=== PATIENT | male | born 1930 | race Caucasian/White ===

== ENCOUNTER → 2016-07-25 | Outpatient (CLI) | payer MEDICARE | LOC: GMAJ 10:19 | PROVIDERS: ATTEND Family Medicine | DX: Z12.5 Encounter for screening for malignant neoplasm of prostate (principal) ==

== ENCOUNTER 2017-06-20 02:34 | Inpatient (IN) | payer MEDICARE ==
--- NOTE | 2017-06-20 03:07 | ED.PDOC ---
History of Present Illness - General Chief Complaint: Lower Extremity Injury Stated Complaint: Fell--Lt ankle injury Time Seen by Provider: 06/20/17 02:51 Source: patient, family - History of Present Illness Initial Comments: Tyler Dunaway 86 y/o male fell backwards while on his walker tonight at home on his way to the bathroom and twisted his left ankle. Occurred: just prior to arrival Pain - Lower Extremity: severe: Left Ankle Method of Injury: fell, twisted Improving Factors: rest Worsening Factors: movement Allergies/Adverse Reactions: Allergies Azithromycin [From Zithromax] Allergy (Verified 06/20/17 02:57) Penicillin G Allergy (Verified 06/20/17 02:57) Home Medications: Ambulatory Orders Citalopram Hydrobromide [Celexa] 20 mg PO DAILY 12/20/12 Gabapentin 250 mg/5 ml [Neurontin] 60 ml PO BID 12/20/12 Metoprolol Succinate [Toprol Xl] 25 mg PO DAILY 12/20/12 Omeprazole Magnesium [Prilosec Otc] 20 mg PO DAILY 12/20/12 Review of Systems - Review of Systems Constitutional: States: no symptoms reported EENTM: States: no symptoms reported Respiratory: States: no symptoms reported Cardiology: States: no symptoms reported Gastrointestinal/Abdominal: States: no symptoms reported Genitourinary: States: no symptoms reported Musculoskeletal: States: see HPI, other - leg swelling left -doppler sono left leg 06/19/17-no blood clots Skin: States: no symptoms reported Neurological: States: other - neuropathy Past Medical History (General) - Patient Medical History Hx Seizures: No Hx Stroke: No Hx Dementia: No Hx Asthma: No Hx of COPD: No Hx Cardiac Disorders: No Hx Congestive Heart Failure: No Hx Pacemaker: No Hx Hypertension: No Hx Thyroid Disease: No Hx Diabetes: No Hx Gastroesophageal Reflux: No Hx Renal Disease: No Hx Cancer: Yes - Colon CA Hx of HIV: No Hx Hepatitis C: No Hx MRSA: No Surgical History: cholecystectomy, other - colon - Vaccination History Hx Tetanus, Diphtheria Vaccination: No Hx Influenza Vaccination: Yes Hx Pneumococcal Vaccination: Yes - Social History Hx Tobacco Use: No Hx Alcohol Use: No Hx Substance Use: No Hx Substance Use Treatment: No Hx Depression: No Hx Physical Abuse: No Hx Emotional Abuse: No Hx Suspected Abuse: No - Activities of Daily Living Patient Lives Alone: No - son Grooming Ability: Independent Eating (Feeding) Ability: Independent Toileting Ability: Independent - Triage Comment ED Triage Comment: Presents to ED per [facility] from pt's home---pt fell getting up to BR---Lt ankle injury--comes with pillow splint to lt ankle plcaed per EMS. 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 Family Medical History - Family History Son Family History: Unknown Living Status: Still Living Physical Exam - Physical Exam General Appearance: Alert, Comfortable, No apparent distress Eyes, Ears, Nose, Throat: normal ENT inspection, other - hearing adequate Neck: non-tender, supple Cardiovascular/Respiratory: regular rate, rhythm, no M/R/G, normal peripheral pulses, no respiratory distress Gastrointestinal/Abdominal: non-tender, no organomegaly Back: no CVA tenderness, no vertebral tenderness Thigh/Hip: non-tender, no evidence of injury Leg: non-tender, no evidence of injury, other - leg edema Knee: non-tender, no evidence of injury Ankle: deformity - left ankle, ecchymosis - medial malleolus, limited ROM - painful, pain - left ankle joint, swelling - left ankle Foot: non-tender, no evidence of injury Neuro/Tendon: normal sensation, normal motor functions, responds to pain Skin: rash - anterior aspect left leg Progress - Progress Progress: 06/20/17 04:19 Vital Signs 06/20/17 02:47 Temperature 95.5 F L Pulse Rate [ 98 H monitor] Respiratory 20 Rate Blood Pressure 163/79 [monitor] O2 Sat by Pulse 98 Oximetry 06/20/17 06:[address] Morgan orthopedist [facility] recommend admission here at [facility] after reducing dislocation and placement of splint.HE WILL SEE PATIENT AT HIS OFFICE 10 AM 06/22/2017 - Results/Orders Results/Orders: Vital Signs - 8 hr 06/20/17 06/20/17 06/20/17 02:47 03:34 04:00 Temperature 95.5 F L 95.8 F L Pulse Rate [ 98 H 67 monitor] Respiratory 20 16 28 H Rate Blood Pressure 163/79 122/68 [monitor] O2 Sat by Pulse 98 94 L 98 Oximetry 06/20/17 06/20/17 06/20/17 04:34 05:30 05:42 Temperature 96.2 F L 96.8 F L Pulse Rate [ 65 69 66 monitor] Respiratory 18 16 18 Rate Blood Pressure 127/79 158/56 132/75 [monitor] O2 Sat by Pulse 94 L 94 L 97 Oximetry 06/20/17 06:24 Temperature 97.2 F L Pulse Rate [ 58 L monitor] Respiratory 18 Rate Blood Pressure 109/62 [monitor] O2 Sat by Pulse 91 L Oximetry - EKG/XRAY/CT XRAY: ankle - left trimalleolar fracture CT Ordered: Yes - left ankle -trimalleolar fracture Procedures - Joint Reduction left ankle Conscious Sedation: Yes Reduction Attempts: 1 - with ankle dislocation left Pre-Procedure NV Exam: Yes Post Joint Reduction Film: trimalleolar fracture left - with near partial alignment on ankle ct done Departure - Departure Clinical Impression: Acute left ankle pain Fall Qualifiers: Encounter type: initial encounter Qualified Code(s): W19.XXXA - Unspecified fall, initial encounter Trimalleolar fracture of ankle, closed Qualifiers: Encounter type: initial encounter Laterality: left Qualified Code(s): S82.852A - Displaced trimalleolar fracture of left lower leg, initial encounter for closed fracture Ankle dislocation Qualifiers: Encounter type: initial encounter Laterality: left Qualified Code(s): S93.05XA - Dislocation of left ankle joint, initial encounter Time of Disposition: 06:31 Disposition: Admit Patient Condition: Good Departure Forms: Patient Portal Self Enrollment Referrals: Gabe Kay MD [Primary Care Provider] - 1-2 Weeks Home Medications: Ambulatory Orders Citalopram Hydrobromide [Celexa] 20 mg PO DAILY 12/20/12 Gabapentin 250 mg/5 ml [Neurontin] 60 ml PO BID 12/20/12 Metoprolol Succinate [Toprol Xl] 25 mg PO DAILY 12/20/12 Omeprazole Magnesium [Prilosec Otc] 20 mg PO DAILY 12/20/12 Decision To Admit - Decistion To Admit Decision to Admit Reason: Admit from ER - for pain control Decision to Admit Date: 06/20/17 - D/W Abisai Mckeon -ANP/Hospitalist Decision to Admit Time: 06:31
[2017-06-20] MEDS ORDERED: SODIUM CHLORIDE 0.9% 1000ML 1,000 ML IVS ONE (03:20)
--- NOTE | 2017-06-20 03:20 | RAD ---
EXAM DESCRIPTION: Ankle,Left 3 Views CLINICAL HISTORY: pain COMPARISON: None. FINDINGS/IMPRESSION: 3 views of the left ankle. Acute ankle fracture dislocation. There is a moderately displaced laterally angulated fracture of the distal fibula above the level of the ankle mortise. Moderately displaced fracture of the medial malleolus. The talus is dislocated laterally relative to the tibia. Atherosclerotic vascular calcification. Diffuse soft tissue swelling. Degenerative change of the intertarsal joints. Electronically signed by: Alfred Singletary 06/20/2017 3:20 AM [facility]
[2017-06-20] MEDS ORDERED: fentaNYL CITRATE INJ 50 MCG/ML AMP ONE (03:44)
[2017-06-20] MEDS ORDERED: fentaNYL CITRATE INJ 50 MCG/ML AMP IV ONE ×2 (04:52→05:56)
--- NOTE | 2017-06-20 05:14 | CT ---
EXAM DESCRIPTION: CT of the left ankle without contrast. CLINICAL HISTORY: Post reduction of left ankle COMPARISON: None Available. TECHNIQUE: Axial CT images of the left ankle without IV contrast FINDINGS: Trimalleolar fracture of the ankle. The talus is in closer to normal anatomic alignment however it remains dislocated laterally. Comminuted mildly displaced medial malleolus fracture. Comminuted moderately displaced fracture of the distal fibula above the level of the ankle mortise. Mildly displaced posterior malleolus fracture. Osteopenia. Atherosclerotic vascular calcification. Diffuse soft tissue edema. The calcaneus is intact. DLP: 193.86 mGy-cm IMPRESSION: 1. Persistent ankle dislocation which is now in closer to normal anatomic alignment however the talus remains laterally displaced relative to the tibial plafond and. 2. Trimalleolar fracture of the ankle. Moderately displaced medial and lateral malleolus fractures and mildly displaced posterior malleolus fracture. This exam was performed according to our departmental dose-optimization program, which includes automated exposure control, adjustment of the mA and/or kV according to patient size and/or use of iterative reconstruction technique. Electronically signed by: Alfred Singletary 06/20/2017 5:13 AM [facility]
[2017-06-20] MEDS ORDERED: ALPRAZolam 0.25 MG TAB PO ONE (05:34)
[2017-06-20] MEDS ORDERED: TETRAHYDROZOLINE HCL OPHTH SOL 1 DROP BOTH_EYES ONE (05:42)
[2017-06-20] MEDS ORDERED: CARBOXYMETHYLCELLULOSE 0.5% OPHTH SOL 0.4 ML UD ONE (05:48)
[2017-06-20] MEDS ORDERED: CARBOXYMETHYLCELLULOSE 0.5% OPHTH SOL 0.4 ML UD BOTH_EYES ONE (05:51)
[2017-06-20] MEDS ORDERED: PROPOFOL 200 MG/20 ML VIAL IV ONE (07:11)
[2017-06-20] MEDS ORDERED: SODIUM CHLORIDE 0.9% 50 ML VIAL INJ ONE (07:11)
[2017-06-20] MEDS ORDERED: LIDOCAINE 1% 10 ML VIAL INJ ONE (07:11)
--- NOTE | 2017-06-20 07:12 | HP ---
SUPERVISING PHYSICIAN: Clarence Guajardo M.D. CHIEF COMPLAINT: Fall with left ankle injury. HISTORY OF PRESENT ILLNESS: Mr. Dunaway is an 86 year-old male patient that presented to the Emergency Department this morning early after he had fallen at home while walking on his walker resulting in a twisting of his ankle with severe pain. He was brought to the Emergency Department via 911. In the Emergency Department, initial x-rays of the left ankle showed that he had an acute ankle fracture dislocation resulting in a trimalleolar fracture. Dr. Foster, E. R. physician, was able to reduce the fracture and place the patient in a posterior sugar tong splint. Surgery services were not available at the time of admission, therefore Dr. Foster contacted [facility] and talked to Dr. Carranza, orthopedist, who requested that the patient be admitted here at the hospital until Thursday at which time he could be transferred either to his office or hospital for anticipation of surgical repair on Thursday. The patient is now placed in Observation in stable condition. PAST MEDICAL HISTORY: 1. Gastroesophageal reflux disease. 2. Hypertension. 3. Small vessel cardiovascular disease. 4. Erectile dysfunction. 5. Alzheimer's disease. 6. Iron deficiency anemia. 7. Colon cancer diagnosed in 2006. 8. Chronic left lower extremity edema with recent Doppler sonogram on indicating no deep venous thrombosis. PAST SURGICAL HISTORY: 1. Cholecystectomy. 2. Fracture repair of the left foot internal fixation. 3. Hemorrhoidectomy. 4. Hernia repair, left inguinal. 5. Transurethral resection of the prostate. 6. Colon resection for colon cancer with colonoscopy in 2007 showing no residual cancer or recurrence of colon cancer or diverticulosis. MEDICAL PROVIDERS: Dr. Kay, primary care provider. Dr. Davis, food clerk. Dr. Osborne, oncologist. HOME MEDICATIONS: 1. Refresh Optive Advanced 1 drop each eye every 4 hours as needed. 2. Artificial Tears 1 drop each eye every 6 hours as needed. 3. Flomax 0.4 mg at bedtime. 4. Toprol XL 50 mg daily. 5. Celexa 20 mg daily. 6. Prilosec ciuw-bpg-lasdodi 20 mg daily. 7. Gabapentin 300 mg b.i.d. ALLERGIES: AZITHROMYCIN AND PENICILLIN G. FAMILY HISTORY: Noncontributory. SOCIAL HISTORY: The patient is retired. Lives in [place], [place] with his . He has a remote history of smoking tobacco but quit many years previous. He does not drink alcohol or use any illicit drugs. REVIEW OF SYSTEMS: CONSTITUTIONAL: Denied any fevers, chills, aches or unintentional weight loss. HEENT: No sinus headaches, nasal congestion, sore throat or ear aches. RESPIRATORY: No reported cough or shortness of breath. CARDIOVASCULAR: No chest pains, palpitations or syncopal episodes. GASTROINTESTINAL: No constipation, diarrhea, nausea, vomiting or abdominal pains. GENITOURINARY: No dysuria, hematuria or other urinary symptoms. MUSCULOSKELETAL: As noted in history of present illness. History of left leg edema with recent Dopplers on 06/19/17 showing no blood clots. 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 No other reported neurological deficits. PHYSICAL EXAMINATION: VITAL SIGNS: Temperature 98.0, pulse 67, blood pressure 104/62, respirations 20 , satting 96% on room air. Admission weight 71.1 kg. GENERAL: On admission to the Medical/Surgical floor, the patient appears to be comfortable in no acute distress. He is alert and oriented. HEENT: Tympanic membranes are clear bilaterally. He does have decreased hearing bilaterally. Oropharynx was pink and moist without any lesions. NECK: Supple, non-tender with full range of motion. CHEST: Lungs were clear to auscultation bilaterally without any rhonchi, wheezing or rales. CARDIOVASCULAR: Regular rate and rhythm without any appreciable murmurs, gallops, or rubs. ABDOMEN: Soft, non-tender. Positive bowel sounds. BACK: No CVA tenderness. No vertebral tenderness. No other evidence of trauma. PELVIS: Non-tender, stable. No pain on assessment. No obvious deformities or trauma. EXTREMITIES: Left ankle shows a posterior and sugar tong splint in place post reduction of the trimalleolar fracture with good pulses via Doppler and capillary refill brisk with no reported paresthesias. NEUROLOGIC: He is alert and oriented times three. Facial features were symmetrical. Extraocular movements are within normal limits. There was no notable nystagmus. Cranial nerves II-XII are grossly intact. LABORATORY STUDIES: CBC showed white count 4,900 with hemoglobin 9.2, hematocrit 27.4, platelet count 246,000. Differential showed to be without a left shift. Chemistries showed a mild hyponatremia at 130 with potassium 4.3, BUN 17, creatinine 0.8, glucose 117, calcium 8.8. Urinalysis showed to be within normal limits. RADIOLOGY: X-ray of the left ankle on admission to the Emergency Department showed acute ankle fracture dislocation with a moderate displaced laterally angulated fracture of the distal fibula above the level of the ankle mortise with a moderate displaced fracture of the medial malleolus with the talus dislocated laterally relative to the tibia. Post reduction CT of the lower extremity was completed with radiology interpretation indicating persistent ankle dislocation which is now in closer to normal anatomic alignment, however the talus remains laterally displaced relative to the tibial plafond, and trimalleolar fractures of the ankle, moderately displaced medial and lateral malleolus fractures, mildly displaced posterior malleolus fracture. Please see both the CT and x-ray results for full details. ASSESSMENT: 1. Status post same level fall with no mention of loss of consciousness resulting in a left ankle dislocation and a trimalleolar fracture. 2. History of gastroesophageal reflux disease. 3. Hypertension. 4. Alzheimer's disease. 5. Iron deficiency anemia. 6. Colon cancer with a colon resection in 2006. 7. History of chronic left lower extremity swelling with no evidence of deep venous thrombosis via ultrasound on 06/19/17. PLAN: After talking to Dr. Foster who contacted Dr. Carranza at [facility] , given that there is no surgical coverage this weekend and the patient is a high risk surgery patient, Dr. Carranza has requested that we admit the patient here until Thursday at which time he can be either transferred to [facility] or discharged to go to Dr. Carranza's clinic, and be admitted at [facility] for open reduction and internal fixation of the ankle to be performed on Thursday. I talked to Dr. Carranza personally. He requested that we go ahead and start the patient on Lovenox as per protocol with 40 mg daily and hold dose on Thursday with anticipation of doing the surgery on Thursday. Dr. Carranza's cell phone number is [phone] and he requested that at time of transfer on Thursday he be contacted by cell phone to further discuss plan of care. The patient is in a posterior sugar tong splint with Rajiv bandage. Will closely monitor this for swelling and adjust the bandage as indicated. Will provide pain control as necessary with [place], morphine or Dilaudid as appropriate to pain level. He will be on bedrest with no weightbearing on the left ankle. Will start him on a regular diet. Will resume his home medications once those have been updated and verified. Nurses have orders to do frequent neurovascular checks of the left foot and ankle, and should anything dramatically change certainly will warrant possibly transferring sooner than Thursday, however the patient appears to be stable at this time and comfortable. He has instructions to keep his leg elevated to decrease the amount of swelling and also for position and comfort. He is to be rotated as possible every 2 hours to prevent any skin breakdown. He will be on incentive spirometry with respiratory assistance to prevent any atelectasis or other complications preoperatively such as pneumonia. Currently he is saline locked. Will plan to repeat laboratory studies in the morning at which time he may need to have some IV fluids to correct underlying sodium prior to Thursday. He did have a Doppler study on 06/19/17 of that left lower leg due to the chronic swelling and it was noted that there was no evidence of a deep venous thrombosis. That report is available. Again, the patient with have care and comfort measures until Thursday at which time arrangement will be made for the patient to either be transferred to the hospital at [facility] or to be discharged to go to Dr. Carranza's office. My feeling is that the patient has a decent support system, but would not be a very safe candidate for a POV transfer, therefore recommendations would be to transfer the patient hopefully directly to [facility] on Thursday. Again, Dr. Carranza requested to be contacted via his cell phone personally to assist in arrangements of transfer and further care. Until transfer, will continue to monitor the patient closely and treat appropriately. #[id number] [facility]
[2017-06-20] MEDS ORDERED: KETOROLAC TROMETHAMINE INJ 30 MG/ML VIAL ONE (07:24)
[2017-06-20] MEDS ORDERED: KETOROLAC TROMETHAMINE INJ 30 MG/ML VIAL IV ONE (07:28)
[2017-06-20] MEDS ORDERED: SODIUM CHLORIDE 0.9% (FLUSH) 10 ML SYG IV PRN (09:33)
[2017-06-20] MEDS ORDERED: ACETAMINOPHEN 325 MG TAB PO PRN (09:33)
[2017-06-20] MEDS ORDERED: MORPHINE SULFATE INJ 10 MG/ML VIAL IV PRN (09:33)
[2017-06-20] MEDS: ENOXAPARIN SODIUM 40 MG/0.4 ML SYG SUBCU SCH (10:46)
[2017-06-20] MEDS ORDERED: OMEPRAZOLE CAP 20 MG CAP ONE (12:28)
[2017-06-20] MEDS: GABAPENTIN 300 MG CAP PO SCH ×2 (12:29→20:55)
[2017-06-20] MEDS: OMEPRAZOLE CAP 20 MG CAP PO SCH (12:30)
[2017-06-20] MEDS ORDERED: NON-FORMULARY MEDICATION 1 EA MIS (Omeprazole Magnesium [Prilosec Otc] 20 MG) PO SCH (12:30)
[2017-06-20] MEDS ORDERED: METOPROLOL SUCCINATE XL 25 MG TAB PO SCH (12:30)
[2017-06-20] MEDS: METOPROLOL SUCCINATE XL 50 MG TAB PO SCH (12:31)
[2017-06-20] MEDS: IV SET AND CAP CHANGE INJ INJ SCH (12:32)
--- NOTE | 2017-06-20 16:42 | PCM.CORE ---
Physician DVT/VTE - Nurse DVT Assessment & Total Each Risk Factor Represents 3 Points: Age over 75 years Each Risk Factor Represents 2 Points: Malignancy (present/past), Immoblizing Cast <1 month Each Risk Factor Represents 1 Point: Medical PT at Bed Rest Each Risk Factor is 1 Point: Hx of Inflammatory Bowel Disease DVT Assessment Score: 9 - 5 or more Very High Risk Treatments: Early Ambulation *, Sequential Compression Device Pharmacological: Enoxaparin 40mg SQ Daily
[2017-06-20] MEDS: HYDROcodone 5MG/APAP 325MG 1 EA TAB PO PRN ×2 (17:37→21:28)
[2017-06-20] MEDS: TAMSULOSIN 0.4 MG CAP PO SCH ×2 (20:55→20:56)
[2017-06-20] MEDS: CITALOPRAM HBR 20 MG TAB PO SCH (20:55)
[2017-06-20] MEDS: SIMETHICONE 80 MG TAB PO PRN (21:38)
[2017-06-21] MEDS: OMEPRAZOLE CAP 20 MG CAP PO SCH (06:00)
[2017-06-21] MEDS: ENOXAPARIN SODIUM 40 MG/0.4 ML SYG SUBCU SCH (08:57)
[2017-06-21] MEDS: METOPROLOL SUCCINATE XL 50 MG TAB PO SCH (08:57)
[2017-06-21] MEDS: GABAPENTIN 300 MG CAP PO SCH ×2 (08:57→20:47)
[2017-06-21] MEDS: HYDROcodone 5MG/APAP 325MG 1 EA TAB PO PRN ×3 (09:06→19:22)
[2017-06-21] MEDS ORDERED: ACETAMINOPHEN 325 MG TAB PO ONE (09:46)
[2017-06-21] MEDS ORDERED: diphenhydrAMINE HCL 25 MG CAP PO ONE (09:50)
[2017-06-21] MEDS ORDERED: SOD CHL 3% *HYPERTONIC* 500ML 300 ML IVS ONE (09:51)
[2017-06-21] MEDS ORDERED: SODIUM CHLORIDE 0.9% 500ML 500 ML IVS SCH (10:00)
[2017-06-21] MEDS ORDERED: FUROSEMIDE INJ 20 MG/2 ML VIAL IV ONE ×2 (10:30→18:00)
--- NOTE | 2017-06-21 11:26 | PN ---
DATE: 06/21/17 SUBJECTIVE: The patient was placed in the hospital for overnight observation and stabilization after a significant fracture dislocation of the left ankle requiring splinting and partial relocation efforts in the Emergency Room yesterday. The patient is going to require specific orthopedic intervention. Our metabolic specialist is not available her now and Dr. Carranza, orthopedist in [place], is available but states that he will be unable to do the repair until Thursday. During the night, it was noted that the patient had a significant drop in his blood count as well as his sodium level suggesting some free water overload. The patient is otherwise awake and alert. Appetite is fairly good. Significant black pepper sensitivity is noted and has been communicated to the kitchen. OBJECTIVE: Temperature is 97.7, blood pressure 160/79, pulse oximetry 94% on nasal cannula. Weight is stable at 71.7 kilos, again stated by the patient. LUNGS: Have a few rhonchi laterally. HEART: Tones are regular. ABDOMEN: Soft. The ankle is in a sugar tong and a posterior splint combination with good coloration and capillary refill at the toes, though skin is somewhat pale generally. LABORATORY: White count 5,200, hemoglobin dropped from 9.2 down to 8 with normal differentials presentation. Chemistry shows potassium 4.1 while sodium dropped from 130 to 127. Kidney functions normal. Creatinine 0.79. Serum osmolality is low at 256. TSH of 5.53. Urinalysis is clean. MRSA shows no growth at 24 hours with the patient having had a history of MRSA in the past. ASSESSMENT: 1. Status post same level fall on slippery floor resulting in unstable trimalleolar fracture of the left ankle with associated dislocation partially relocated in the Emergency Room, though still dislocated radiographically requiring surgical intervention. 2. Significant anemia worsening since yesterday with hemoglobin down to 8 with RBCs ordered to assist with the perioperative care anticipated. 3. Significant hyponatremia which he has had in the past, seems to be a little worse than usual requiring fluid restrictions, some saline infusion and some added sale in the diet, and reevaluation in the morning. 4. History of hypertension. 5. History of gastroesophageal reflux disease. 6. History of some Alzheimer's dementia. 7. Chronic iron deficiency anemia. 8. History of colon cancer with colon resection in 2006. 9. History of chronic left lower extremity edema yet no evidence of deep venous thrombosis on ultrasound exam of 06/19/17. PLAN: The patient is being approached with fluid restrictions, small dose of hypertonic saline and 2 units of packed red blood cells with reevaluation afterwards to determine stability for surgical procedures. Will discuss with Dr. Avery, orthopedic surgeon at [facility]. Case already discussed yesterday with Dr. Carranza, orthopedist in [place], who has accepted him tentatively by tomorrow. Will reevaluate in the morning and then today to determine whether Dr. Avery is wishing to proceed with the operative repair of the fracture dislocation of the left ankle, or would because of medical problems, he be best served to be transferred to [place]. Reevaluation in the morning. Discussed with family. #[id number] [facility]ITALYol[facility]
[2017-06-21] MEDS: SIMETHICONE 80 MG TAB PO PRN (14:56)
[2017-06-21] MEDS: TAMSULOSIN 0.4 MG CAP PO SCH (20:47)
[2017-06-21] MEDS: CITALOPRAM HBR 20 MG TAB PO SCH (20:47)
[2017-06-22] MEDS: HYDROcodone 5MG/APAP 325MG 1 EA TAB PO PRN ×4 (02:23→20:11)
[2017-06-22] MEDS: CARBOXYMETHYLCELLULOSE GLYCERI TOP PRN ×2 (02:38→19:34)
[2017-06-22] MEDS: OMEPRAZOLE CAP 20 MG CAP PO SCH (06:02)
[2017-06-22] MEDS: GABAPENTIN 300 MG CAP PO SCH ×2 (08:18→20:40)
[2017-06-22] MEDS: METOPROLOL SUCCINATE XL 50 MG TAB PO SCH (08:18)
[2017-06-22] MEDS ORDERED: [UNRECOGNIZED DRUG - OTHER] IVS ONE (11:27)
[2017-06-22] MEDS ORDERED: SODIUM CHLORIDE 3% IVS ONE (11:27)
[2017-06-22] MEDS ORDERED: ENOXAPARIN SODIUM 40 MG/0.4 ML SYG SUBCU ONE (11:40)
[2017-06-22] MEDS ORDERED: FUROSEMIDE INJ 20 MG/2 ML VIAL IV ONE (12:00)
[2017-06-22] MEDS: POTASSIUM CHLORIDE 10 MEQ TAB PO SCH (12:16)
[2017-06-22] MEDS ORDERED: MAGNESIUM HYDROXIDE 30 ML UD PO ONE (12:50)
[2017-06-22] MEDS ORDERED: BISACODYL SUPPOSITORY 10 MG PR PRN (12:55)
--- NOTE | 2017-06-22 13:38 | PN ---
DATE: 06/22/17 SUBJECTIVE: The patient had a fairly good sleep and is eating quite well today. He is full awake and alert. His son is present and assist with his ongoing care. I discussed with Dr. Avery who is willing to prepare and perform significant surgical intervention for repair of the ankle fracture and dislocation tomorrow morning. I discussed with Anesthesia who will actively also participate with support and choice of the proper anesthesia during the procedure. OBJECTIVE: VITAL SIGNS: Temperature 99.7. Pulse 99. Blood pressure 150/68. Pulse oximetry 92% on room air. Fairly good intake and output is noted. Slight increase in weight evident, going from a stated weight to an apparent measured weight which could be part of the difference note. LUNGS: Clear. The patient is encouraged to continue with deep breathing as well as contraction and relaxation of the lower extremity muscles. Primary reason to assist with DVT prophylaxis. ABDOMEN: Soft. EXTREMITIES: Goo appearance of the toes of the left foot and good range of motion evident. Good capillary fill. LABORATORY: White count 7,600, hemoglobin up to 10.2 after 2 units of packed red blood cells, being down to 8 yesterday morning. INR normal at 1. Chemistry shows sodium up 129 from 127 after hypertonic saline and fluid restrictions evident. Slight increase in serum osmolality reflects this increase. BUN normal at 16, creatinine 0.88, calcium 8.1, TSH 5.5. Urine is clean. MRSA surveillance culture is still pending. ASSESSMENT: 1. Significant recent fall with resultant unstable trimalleolar fracture dislocation of the left ankle with partial relocation in the Emergency Room, though still dislocated radiographically and requiring surgical intervention to provide stability in that ankle so the patient will be able to take care of his ongoing needs. 2. Significant anemia, showing some improvement after 2 units of packed red blood cells given yesterday. 3. Significant hyponatremia, treated with hypertonic saline, fluid restrictions and some loop diuresis, showing slight improvement with continued treatment overnight in anticipation of surgery in the morning. 4. History of hypertension. 5. History of gastroesophageal reflux disease. 6. History of some Alzheimer's dementia. 7. Chronic iron deficiency anemia. 8. History of colon cancer with colon resection in 2006, having subsequently received chemotherapy, now stopped, yet still with a port in place. 9. History of chronic left lower extremity edema yet no evidence of deep venous thrombosis on ultrasound exam of 06/19/17. Whether this is related to the history of previous colon cancer to be determined. PLAN: Anticipate surgical intervention and repair of the fracture dislocation of left ankle tomorrow morning. He will receive his metoprolol succinate 50 mg as well as Prilosec 20 mg p.o. at 6 in the morning in anticipation of the surgery to follow. Special cleansing in an effort to reduce risk of MRSA infection to be performed tonight. Reevaluation of chemistries in the morning and postoperative followup necessary. Continued improvement of the electrolytes necessary and close observation of his anemia state to continue. #[id number] [facility]
--- NOTE | 2017-06-22 14:11 | RAD ---
EXAM DESCRIPTION: Chest,1 View CLINICAL HISTORY: pre-op ankle COMPARISON: December 20, 2012 IMPRESSION: Single AP portable upright view of the chest shows mild enlargement of the cardiac silhouette without pulmonary vascular congestion. Subclavian Mediport appears in good positioning. Lungs are normally aerated and clear. No evidence of significant pleural effusion or pneumothorax is seen. Electronically signed by: Aaron Vasquez MD 06/22/2017 2:10 PM FIELD CONTACT TECHNICIAN
[2017-06-22] MEDS: SIMETHICONE 80 MG TAB PO PRN (19:37)
[2017-06-22] MEDS: KCL 20 MEQ/NS 1,000 ML IVS PRN (20:35)
[2017-06-22] MEDS: CITALOPRAM HBR 20 MG TAB PO SCH (20:40)
[2017-06-22] MEDS: TAMSULOSIN 0.4 MG CAP PO SCH (20:40)
[2017-06-23] MEDS: HYDROcodone 5MG/APAP 325MG 1 EA TAB PO PRN ×2 (00:31→11:44)
[2017-06-23] MEDS: SIMETHICONE 80 MG TAB PO PRN ×2 (00:32→18:37)
[2017-06-23] MEDS ORDERED: BACITRACIN 0.9 GM UD PCKT ONE (04:57)
[2017-06-23] MEDS ORDERED: METOPROLOL SUCCINATE XL 50 MG TAB PO ONE (05:50)
[2017-06-23] MEDS ORDERED: OMEPRAZOLE CAP 20 MG CAP PO ONE (05:50)
[2017-06-23] MEDS: OMEPRAZOLE CAP 20 MG CAP PO SCH (06:25)
[2017-06-23] MEDS ORDERED: ceFAZolin SODIUM 1 GM VIAL ONE (06:49)
[2017-06-23] MEDS ORDERED: VANCOMYCIN HCL INJ 1,000 MG VIAL IVPB ONE ×4 (06:49→19:29)
[2017-06-23] MEDS ORDERED: HYDROmorphone HCL INJ 2 MG/ML VIAL ONE (06:54)
[2017-06-23] MEDS: POTASSIUM CHLORIDE 10 MEQ TAB PO SCH (06:55)
[2017-06-23] MEDS ORDERED: SODIUM CHLORIDE 0.9% 250ML 250 ML ONE ×3 (07:05→19:28)
[2017-06-23] MEDS ORDERED: ceFAZolin SODIUM 1 GM VIAL INJ ONE (07:45)
[2017-06-23] MEDS ORDERED: SODIUM CHLORIDE 0.9% 1000ML 1,000 ML ONE (08:38)
[2017-06-23] MEDS: METOPROLOL SUCCINATE XL 50 MG TAB PO SCH (08:41)
[2017-06-23] MEDS: GABAPENTIN 300 MG CAP PO SCH ×2 (08:41→20:43)
[2017-06-23] MEDS: IV SET AND CAP CHANGE INJ INJ SCH (08:41)
[2017-06-23] MEDS ORDERED: CARBOXYMETHYLCELLULOSE 0.5% OPHTH SOL 0.4 ML UD ONE (09:14)
[2017-06-23] MEDS ORDERED: BUPIVACAINE 0.25% INJ 30 ML VIAL INJ ONE (09:24)
[2017-06-23] MEDS ORDERED: ceFAZolin SODIUM 1 GM VIAL IVPB ONE (10:00)
[2017-06-23] MEDS ORDERED: METOCLOPRAMIDE HCL INJ 10 MG/2 ML VIAL IV ONE (10:00)
[2017-06-23] MEDS ORDERED: DEXAMETHASONE INJ 10 MG/ML VIAL IV ONE (10:00)
[2017-06-23] MEDS ORDERED: SODIUM CHLORIDE 0.9% 50 ML VIAL INJ ONE (10:00)
[2017-06-23] MEDS ORDERED: ePHEDrine SULF 50 MG/ML IV ONE (10:00)
[2017-06-23] MEDS ORDERED: LIDOCAINE 1% 10 ML VIAL INJ ONE (10:00)
[2017-06-23] MEDS ORDERED: raNITIdine HCL INJ 25 MG/ML VIAL IV ONE (10:00)
[2017-06-23] MEDS ORDERED: PROPOFOL 200 MG/20 ML VIAL IV ONE (10:00)
--- NOTE | 2017-06-23 11:00 | RAD ---
EXAM DESCRIPTION: Ankle,Left 3 Views CLINICAL HISTORY: post op COMPARISON: June 20, 2017 IMPRESSION: 3 views of the left ankle show interval lateral plate and screw fixation of a comminuted fracture of the distal fibula that now appears in near anatomic alignment. Comminuted fracture of the medial malleolus also shows improved positioning. There has been interval reduction of the tibiotalar dislocation seen on previous exam. There remains some widening of the medial and narrowing of the lateral tibiotalar joint space on lateral projection. Osseous structures are diffusely osteopenic. Diffuse soft tissue swelling of the ankle is seen. Soft tissue emphysema is seen likely related to recent surgery. Electronically signed by: Aaron Vasquez MD 06/23/2017 10:59 AM [facility]
[2017-06-23] MEDS: KCL 20 MEQ/NS 1,000 ML IVS PRN (15:03)
[2017-06-23] MEDS ORDERED: ceFAZolin SODIUM 2 GRAMS PREMI 50 ML IVPB ONE ×2 (15:39→19:29)
[2017-06-23] MEDS: ceFAZolin SODIUM 2 GRAMS PREMI 2 GM in PREMIX BAG 1 BAG IVPB SCH ×2 (15:44→23:53)
[2017-06-23] MEDS ORDERED: ENOXAPARIN SODIUM 40 MG/0.4 ML SYG SUBCU SCH (16:00)
[2017-06-23] MEDS: traMADol HCL 50 MG TAB PO PRN (16:38)
--- NOTE | 2017-06-23 17:30 | PN ---
DATE: 06/23/17 SUPERVISING PHYSICIAN: Gabe Kay M.D. SUBJECTIVE: The patient is lying in his bed. He is very knww-yr-[id number]. Has no complaints of shortness of breath, nausea, vomiting or diarrhea. His daughter is at the bedside. She said that he has had some brief period of apnea but that is not a new situation. In fact, she spoke to Dr. Kay about it last week. She also said that Hydrocodone tends to make him somewhat disoriented and would like to try another pain medication. He initially did not want to go to a rehab facility, but after a long discussion with him about he benefits of going to a rehab facility such as [facility], he has agreed to do that upon discharge. OBJECTIVE: VITAL SIGNS: temperature 97.8, pulse rate 81, blood pressure 136/76 , respiratory rate 16, O2 sat is 94% on 3 liters nasal cannula. RESPIRATORY: Essentially clear to auscultation bilaterally. CARDIAC: Regular rate and rhythm. GASTROINTESTINAL: Abdomen is soft, nondistended, non-tender. Bowel sounds are positive. EXTREMITIES: Bilateral palpable pedal pulses that are equal. There is an Rajiv wrap with dressings to his left ankle that is dry and intact. NEUROLOGIC: He is awake, alert and oriented times three. Somewhat hard -of-hearing. LABORATORY: WBCs are 6.5, hemoglobin 9.8, hematocrit 28.8. Sodium 130, potassium 4.5, chloride 100, carbon dioxide 25, BUN 18, creatinine 0.86, glucose 94, calcium 7.9. RADIOLOGY: Ankle x-ray shows comminuted fracture of the medial malleolus that is in improved positioning. There is an internal reduction of the tibiotalar dislocation seen on previous exam. There is some widening of the medial and narrowing of the lateral tibiotalar joint space on lateral projection with diffuse soft tissue swelling of the ankle. All other labs and films are reviewed via the EMR. ASSESSMENT: 1. Left ankle fracture status post open reduction and internal fixation, postoperative day [address] Pranay Avery, orthopedic surgeon. 2. Recent fall with resultant unstable tibiotalar fracture dislocation of the left ankle that was partially relocated in the Emergency Room and required surgical intervention today. 3. Significant anemia, showing some improvement after 2 units of packed red blood cells. 4. Hyponatremia that is stabilized at 130. 5. Hypertension. 6. Gastroesophageal reflux disease. 7. Mild Alzheimer's dementia. 8. Chronic iron deficiency anemia. 9. History of colon cancer with colon resection in 2006, received chemotherapy. 10. History of chronic left lower extremity edema with recent ultrasound showing no deep venous thrombosis. PLAN: We will continue present supportive care. I have ordered labs for in the morning. Orthopedic issues will be followed per Dr. Pranay Avery. Physical Therapy will begin work with him tomorrow. I spoke with [facility] today and they will take him for rehab. He will definitely need to go to a facility due to his nonweightbearing status. Dr. Avery has continued his routine antibiotics. I have discontinued his [place] and restarted his Tramadol due to minor mental status changes on [place]. I have also put him on a continuous pulse oximetry and he may need a sleep study at some point after discharge. Plan for discharge is to [facility] in a few days. Will continue to monitor the patient closely and follow as needed. Dr. Kay is the collaborating physician available for consultation. #[id number] [facility]
[2017-06-23] MEDS: VANCOMYCIN HCL INJ 1,000 MG in SODIUM CHLORIDE 0.9% 250ML 250 ML IVPB SCH (17:58)
[2017-06-23] MEDS: ENOXAPARIN SODIUM 40 MG/0.4 ML SYG SUBCU SCH (20:43)
[2017-06-23] MEDS: CITALOPRAM HBR 20 MG TAB PO SCH (20:43)
[2017-06-23] MEDS: TAMSULOSIN 0.4 MG CAP PO SCH (20:43)
[2017-06-24] MEDS: VANCOMYCIN HCL INJ 1,000 MG in SODIUM CHLORIDE 0.9% 250ML 250 ML IVPB SCH (06:17)
[2017-06-24] MEDS: OMEPRAZOLE CAP 20 MG CAP PO SCH (06:17)
[2017-06-24] MEDS ORDERED: ceFAZolin SODIUM 2 GRAMS PREMI 50 ML IVPB ONE (07:08)
[2017-06-24] MEDS: POTASSIUM CHLORIDE 10 MEQ TAB PO SCH (07:29)
[2017-06-24] MEDS: ceFAZolin SODIUM 2 GRAMS PREMI 2 GM in PREMIX BAG 1 BAG IVPB SCH (07:31)
[2017-06-24] MEDS: GABAPENTIN 300 MG CAP PO SCH ×2 (08:03→20:54)
[2017-06-24] MEDS: METOPROLOL SUCCINATE XL 50 MG TAB PO SCH (08:03)
--- NOTE | 2017-06-24 08:05 | CONS ---
CHIEF COMPLAINT: Left ankle pain. HISTORY OF PRESENT ILLNESS: Mr. Dunaway is an 86-year-old male with a history of pain in the left ankle. The patient fell on the day of presentation. He was then admitted here and monitored by the hospitalist service. Because of the medical issues that he had, he was not optimized for surgery until the following Thursday. He denies any radiation of pain or neurologic symptoms. PAST MEDICAL HISTORY: 1. Gastroesophageal reflux disease. 2. Hypertension. 3. Cardiovascular disease. 4. Alzheimer's. 5. Anemia. 6. Colorectal cancer. PAST SURGICAL HISTORY: 1. Cholecystectomy. 2. Open reduction internal fixation of left foot. 3. Hemorrhoidectomy. 4. Herniorrhaphy. 5. Transurethral resection of the prostate. 6. Colon resection. MEDICATIONS: 1. Flomax. 2. Toprol. 3. Celexa. 4. Prilosec. 5. Gabapentin. ALLERGIES: AZITHROMYCIN, PENICILLIN. SOCIAL HISTORY: The patient does not drink, smoke or use any illicit drugs. FAMILY HISTORY: None pertinent to today's complaint. REVIEW OF SYSTEMS: Negative except as indicated in the History of Present Illness. PHYSICAL EXAMINATION: VITAL SIGNS: Temperature 98. Pulse 67. Respirations 20. Blood pressure 104/ 62. O2 saturation 96% on room air. MENTAL STATUS: The patient is awake, alert, and is able to give a good history and participate in the physical. The patient is oriented to person, place and time. SKIN: Normal tone and turgor. HEENT: Normocephalic, atraumatic. Pupils equal, round and reactive. Mucosal membranes are moist. NECK: Normal range of motion. No thyromegaly, no lymphadenopathy. CHEST: Normal respiratory excursion. CARDIAC: Regular rate and rhythm. No murmurs, rubs or gallops. MUSCULOSKELETAL: Bilateral upper extremities show full active range of motion without pain. He has intact sensation in the extremities and they are warm and well perfused. He has no deformity or crepitus. The right lower extremity shows no evidence of deformity. Sensation is intact. It is warm and well perfused. The left lower extremity is splinted. Sensation is intact in the digits. There is no deformity of the knee and no limitation in range of motion of the knee or hip. IMAGING: X-ray showed show a trimalleolar ankle fracture with lateral displacement of the ankle on the foot. A reduction was attempted in the Emergency Room with splinting. ASSESSMENT: 1. Ankle fracture dislocation. PLAN: The plan at this point is for open reduction with internal fixation. We have discussed the risks, benefits, and alternatives to that and the patient has given informed consent. [facility][id number] [facility]
--- NOTE | 2017-06-24 08:14 | OP ---
DATE OF PROCEDURE: 06/23/17 PREOPERATIVE DIAGNOSIS: 1. Trimalleolar ankle fracture. POSTOPERATIVE DIAGNOSIS: 1. Trimalleolar ankle fracture. PROCEDURE: 1. Open reduction internal fixation of fibula. SURGEON: Pranay Avery MD. JACQUARD LOOM CARD CHANGER: Aakash Estevez CST, SA-C. ANESTHESIA: General anesthesia. COMPLICATIONS: None. FINDINGS: Oblique fracture of the distal fibula with fracture of the medial malleolus. There was a large eschar over the medial aspect of the ankle directly overlying the medial malleolus. INDICATION: Mr. Dunaway is an 86-year-old male with a history of a fall that caused acute onset of pain in the ankle. He presented to the Emergency Room at that time. He had no other injury associated with this fall. He was admitted and placed into a splint. He had subsequently developed a decrease in his sodium as well as his hemoglobin and the primary care physician did not feel as though he was eligible for operative intervention at that time. Once he became stabilized and cleared for surgery, the risks, benefits and alternatives to surgery were discussed with him. Following discussion of those risks, benefits and alternatives, informed consent was obtained for open reduction with internal fixation. PROCEDURE: The patient was bought to the Operating Room and placed in supine position. General anesthesia was induced and the patient's leg was sterilely prepped and draped. Following prepping and draping, an incision was made directly in line with the fibula. Following dissection down to the fibula, the fracture site was identified and debrided of hematoma. The fracture was reduced under fluoroscopic imaging and direct visualization. A plate was placed along the fracture and under fluoroscopic imaging, the screw holes were filled proximally and distally. The medial malleolus reduced in an acceptable position with that. The ankle was stressed and there was no opening or widening of the mortise. Because the large area of potential skin compromise over the medial malleolus, I elected to do no intervention with that. Given the stability of the ankle with the reduction of the fibula, I think it was reasonable to leave it in that position. The wound was very thoroughly irrigated and closed with Nylon suture. Sterile dressings were placed. The patient was placed in a splint with no pressure over the medial aspect of the ankle. The patient was then awoken from anesthesia and taken to Recovery. POSTOPERATIVE INSTRUCTIONS: He will be [id number]. We will continue to monitor the medial aspect of the ankle. I discussed with the family the injury on the medial aspect and the need for close monitoring of that. They expressed full understanding. Although he will be qld-dogtvl-afwqali, we will mobilize him on postoperative day 1. #[id number] [facility]
[2017-06-24] MEDS: SIMETHICONE 80 MG TAB PO PRN (08:56)
[2017-06-24] MEDS: KCL 20 MEQ/NS 1,000 ML IVS PRN (09:03)
[2017-06-24] MEDS: CARBOXYMETHYLCELLULOSE GLYCERI TOP PRN (14:27)
--- NOTE | 2017-06-24 15:54 | PN ---
DATE: 06/24/17 SUPERVISING PHYSICIAN: Gabe Kay M.D. SUBJECTIVE: The patient is sitting up in his chair in his hospital room. He has no complaints of shortness of breath, nausea, vomiting or diarrhea. He does not like that he cannot stand on his foot but understands why he cannot. I had a lengthy discussion with the patient as well as his son and we have agreed that Swing Bed would most likely be the best discharge plan for him. OBJECTIVE: VITAL SIGNS: Temperature 99.5, pulse rate 83, blood pressure 144/72 , respiratory rate 16, O2 sat is 92% on room air. RESPIRATORY: Essentially clear to auscultation bilaterally. CARDIAC: Regular rate and rhythm. GASTROINTESTINAL: Abdomen is soft, nondistended, non-tender. Bowel sounds are positive. EXTREMITIES: Has a dressing on that left ankle. It has an Rajiv bandage on it. It is dry and intact. Bilateral pedal pulses are palpable at + 1. NEUROLOGIC: He is awake, alert and oriented times three. LABORATORY: WBCs are 10.7 with hemoglobin 9, hematocrit 26.9. Sodium has improved to 131, potassium 4.4, chloride 103, carbon dioxide 22, BUN 23, creatinine 0.85. All other labs and films have been reviewed via the EMR. ASSESSMENT: 1. Left ankle fracture status post open reduction and internal fixation, postoperative day #1. Operative procedure performed by Dr. Pranay Avery, orthopedic surgeon. 2. Recent fall with resultant unstable tibiotalar fracture dislocation of the left ankle that was partially relocated in the Emergency Room and required surgical intervention today. 3. Significant anemia, showing some improvement. He did receive 2 units of packed red blood cells. 4. Hyponatremia that is stabilized at 131. 5. Hypertension. 6. Gastroesophageal reflux disease. 7. Mild Alzheimer's dementia. 8. Chronic iron deficiency anemia. 9. History of colon cancer with colon resection in 2006, received chemotherapy. 10. History of chronic left lower extremity edema with recent ultrasound showing no deep venous thrombosis. PLAN: We will continue present supportive care. He will continue with physical therapy for strengthening and conditioning. Will need to followup with Dr. Avery and make sure as to how long for weightbearing status, but most likely will discharge the patient from the Acute Care setting and admit him to Swing Bed as the patient's family does not want him discharged out of town, and would rather him to complete physical therapy in the hospital. I will check an H&H in the morning. We will defer all orthopedic issues for Dr. Avery. Meanwhile will continue to monitor the patient closely and follow as needed. Dr. Kay is the collaborating physician available for consultation. #[id number] [facility]
[2017-06-24] MEDS: traMADol HCL 50 MG TAB PO PRN ×2 (16:07→20:53)
[2017-06-24] MEDS: CITALOPRAM HBR 20 MG TAB PO SCH (20:52)
[2017-06-24] MEDS: TAMSULOSIN 0.4 MG CAP PO SCH (20:53)
[2017-06-24] MEDS: ENOXAPARIN SODIUM 40 MG/0.4 ML SYG SUBCU SCH (20:54)
[2017-06-25] MEDS: KCL 20 MEQ/NS 1,000 ML IVS PRN ×2 (00:36→14:17)
[2017-06-25] MEDS: OMEPRAZOLE CAP 20 MG CAP PO SCH (06:34)
[2017-06-25] MEDS: traMADol HCL 50 MG TAB PO PRN (07:58)
[2017-06-25] MEDS: POTASSIUM CHLORIDE 10 MEQ TAB PO SCH (07:59)
[2017-06-25] MEDS: GABAPENTIN 300 MG CAP PO SCH ×2 (08:00→20:53)
[2017-06-25] MEDS: METOPROLOL SUCCINATE XL 50 MG TAB PO SCH (08:00)
[2017-06-25] MEDS: SIMETHICONE 80 MG TAB PO PRN (08:59)
[2017-06-25] MEDS ORDERED: CARBOXYMETHYLCELLULOSE 0.5% OPHTH SOL 0.4 ML UD BOTH_EYES PRN (15:40)
--- NOTE | 2017-06-25 16:54 | PN ---
DATE: 06/24/17 SUBJECTIVE: Mr. Dunaway is doing well and his pain is well controlled. OBJECTIVE: X-rays showed a good reduction. PLAN: At this point, he is going to continue on and he will be nonweightbearing. Will monitor his wound and will hopefully have him transferred to [facility] if need be, where wound care for the medial aspect can be performed. #[id number] [facility]
--- NOTE | 2017-06-25 16:58 | PN ---
DATE: 06/25/17 SUBJECTIVE: OBJECTIVE: Mr. Dunaway's surgical wound is clean. There are no signs or symptoms of infection. The wound along the medial aspect of the ankle is detailed in pictures on his chart. Unfortunately, I am afraid that we may get some skin sloughing if not full thickness defect. As such, I have asked that we further consider transfer to [facility] at the earliest convenience for he and the family. PLAN: Otherwise we are going to continue on with elevation and nonweightbearing status. #[id number] [facility]
--- NOTE | 2017-06-25 19:01 | PN ---
DATE: 06/25/17 SUPERVISING PHYSICIAN: Gabe Kay M.D. SUBJECTIVE: The patient is sitting in the bedside chair this morning visiting with family with his leg up. He denied any complications with shortness of breath, nausea or vomiting. He has not been weightbearing on the left leg. He does require max assist to transfer from bedside to commode back to chair or bed. OBJECTIVE: VITAL SIGNS: Temperature 97.4, pulse 80, blood pressure 161/76, respirations 20, satting 97% on room air. I's and O's show a positive balance of 1608 with 3408 in, 1800 out. He has had 1 bowel movement. Weight 74.2 kg. CHEST: Lungs are clear to auscultation. HEART: Regular rate and rhythm. ABDOMEN : Soft, non-tender. Positive bowel sounds. EXTREMITIES: Left leg has a walking boot in place. Distally toes are pink and warm with good pulses and capillary refill. The wound overlying the medial aspect of the ankle was not directly visualized as he had just had a dressing change prior to examination. NEUROLOGIC: He is alert and oriented times three. LABORATORY: Hemoglobin shows to be at 8.9 and 26.5. Chemistries show a persistent hyponatremia at 128 with potassium 4.3, BUN 19, creatinine 0.79, calcium 7.9. MICROBIOLOGY: MRSA surveillance culture did show MRSA. ASSESSMENT: 1. Left ankle fracture status post open reduction and internal fixation, postoperative day #2. Operative procedure performed by Dr. Pranay Avery, orthopedic surgeon. 2. Recent fall with resultant unstable tibiotalar fracture dislocation of the left ankle that was partially relocated in the Emergency Room and required surgical intervention. 3. Significant anemia, improving after receiving 2 units of packed red blood cells. 4. Hyponatremia showing to be fairly stable. 5. Hypertension. 6. Gastroesophageal reflux disease. 7. Mild Alzheimer's dementia. 8. Chronic iron deficiency anemia. 9. History of colon cancer with colon resection in 2006, completing chemotherapy. 10. History of chronic lower extremity edema with recent ultrasound showing no deep venous thrombosis of the left leg. PLAN: Given the wound overlying his medial ankle, wound care is a priority at this point therefore transfer to [facility] for advanced wound management is in process as well as he can continue with rehab at some point. [facility] is to reevaluate today given there is a change in his condition regarding transfer initially for just rehab, now with wound care management. Will await the [facility] consultation with anticipating hopefully being able to discharge tomorrow. Until then, will continue to monitor and treat appropriately. Will plan to repeat laboratory studies in the morning, again to follow his chemistries and his hemoglobin and hematocrit. [facility][id number] [facility]
[2017-06-25] MEDS ORDERED: FUROSEMIDE INJ 20 MG/2 ML VIAL IV ONE (20:00)
[2017-06-25] MEDS: CITALOPRAM HBR 20 MG TAB PO SCH (20:53)
[2017-06-25] MEDS: ENOXAPARIN SODIUM 40 MG/0.4 ML SYG SUBCU SCH (20:53)
[2017-06-25] MEDS: TAMSULOSIN 0.4 MG CAP PO SCH (20:53)
[2017-06-26] MEDS: SIMETHICONE 80 MG TAB PO PRN (00:30)
[2017-06-26] MEDS: OMEPRAZOLE CAP 20 MG CAP PO SCH (06:00)
[2017-06-26] MEDS: POTASSIUM CHLORIDE 10 MEQ TAB PO SCH (07:36)
[2017-06-26] MEDS: GABAPENTIN 300 MG CAP PO SCH (08:50)
[2017-06-26] MEDS: METOPROLOL SUCCINATE XL 50 MG TAB PO SCH (08:50)
[2017-06-26] MEDS ORDERED: SODIUM CHLORIDE 0.9% (FLUSH) 10 ML SYG IV SCH (09:00)
[2017-06-26] MEDS: traMADol HCL 50 MG TAB PO PRN (10:21)
[2017-06-26 12:08] VITALS: BP 146/70; TEMP 98.4; O2SAT 95
--- NOTE | 2017-07-04 14:22 | DS ---
SUPERVISING PHYSICIAN: Gabe Kay MD DISCHARGE DIAGNOSIS: 1. Left ankle fracture status post open reduction and internal fixation, postoperative day #3. Operative procedure performed by Dr. Pranay Avery, orthopedic surgeon with complications from wound on the left medial malleolus requiring aggressive wound management. 2. Recent fall with resultant unstable tibiotalar fracture dislocation of the left ankle that was partially relocated in the Emergency Room and required surgical intervention as per #1. 3. Significant anemia, improved with 2 units of packed red blood cells. 4. Hyponatremia showing to be stable. 5. Hypertension. 6. Gastroesophageal reflux disease. 7. Mild Alzheimer's dementia. 8. Chronic iron deficiency anemia. 9. History of colon cancer with colon resection in 2006 completing chemotherapy. 10. History of chronic lower extremity edema with recent ultrasound showing no evidence deep venous thrombosis of the left leg. REASON FOR HOSPITALIZATION: Mr. Garibay is an 86 year-old male patient who presented to the Emergency Department on the morning of 06/20/17 after he had fallen at home while walking on his walker resulting in a twisting of his ankle with severe pain. He was brought to the Emergency Department via 911. In the Emergency Department, initial x-rays of the left ankle showed that he had an acute ankle fracture dislocation resulting in a trimalleolar fracture. Dr. Foster, Emergency Room physician, was able to reduce the fracture and place the patient in a posterior sugar tong splint. Surgery services were not available at the time of admission, therefore Dr. Foster contacted [facility] and talked to Dr. Carranza, orthopedist, who requested that the patient be admitted to the hospital at [place] until Thursday at which time he would make arrangements for the patient to be transferred with intentions of doing surgical repair on Thursday. The patient was placed in Observation in stable condition. LABORATORY STUDIES: White count on admission was 4,900, discharge 7,000. Hemoglobin on admission 9.2, hematocrit 27.4. Post surgery, his hemoglobin went down to 8.0 and hematocrit 22.8 at which time he was given 2 units of packed red blood cells and prior to discharge was showing to be stable at 9.1 and 27.0. Platelet count remained within normal limits, discharge 199,000. Coagulation studies showed a normal PT and PTT. Chemistries initially on admission showed a low sodium of 130 with a potassium of 4.3. BUN 17, creatinine was 0.8. Calcium 8.6. TSH 5.3. After surgery and prior to discharge and after fluids, he was showing persistent hyponatremia at 125 with a BUN of 14, creatinine 0.7 with serum osmolality of 251. Urinalysis showed to be within normal limits. He had 2 occult bloods on stool that were negative. MICROBIOLOGY: MRSA culture did show staphylococcal aureus that was methicillin resistant. RADIOLOGY: Initially in the Emergency Department included an ankle x-ray and per radiology interpretation showed an ankle fracture dislocation, displaced lateral angulated fracture of the distal fibula above the level of the ankle mortise with a moderate displaced fracture of the medial malleolus. The talus is dislocated laterally relative to the tibia. Post reduction in the Emergency Department,CT of the lower extremity per radiology interpretation showed persistent ankle dislocation which was now questionable on anatomic alignment, however, the talus remained laterally displaced relative to the tibial plafond and trimalleolar fracture of the ankle, moderately displaced medial and lateral malleolus fractures and mildly displaced posterior malleolus fracture. Postoperative chest x-ray showed a single AP view with no evidence of significant pleural effusion or pneumothorax. Lungs were normally aerated and clear. Repeat ankle x-ray on 06/23/17 after surgery showed a comminuted fracture of the medial malleolus showed improved positioning with interval lateral plate and screw fixation of comminuted fracture of the distal fibula that appears to be in normal alignment. There has been interval reduction of the tibiotalar dislocation as seen on previous exam. There remains some widening of the medial and narrowing of the lateral tibial joint space in the lateral projection with diffuse osseous swelling of the ankle seen. Soft tissue emphysema is seen likely related to surgery. Please see all his reports for full details. Consultation with orthopedic services, Dr. Pranay Avery, preoperative diagnoses: ankle fracture dislocation. Operative Procedures by Dr. Pranay Avery, orthopedic services, preoperative diagnosis of trimalleolar ankle fracture. Postoperative diagnosis of trimalleolar ankle fracture with procedure: (1) Open reduction and internal fixation of fibula. Please see Dr. Dr. Avery's operative notes for full details. HOSPITAL COURSE: Mr. Garibay was admitted to the Emergency Room on 06/20/17 with arrangements to have patient transferred on Thursday following admission to [facility] for surgical orthopedic services, Dr. Carranza. However, on the Thursday following admission, the patient was being seen in consultation by Dr. Avery who then took the patient to surgery as noted above. The patient tolerated surgery well and was followed through his recovery phase. He did have a low hemoglobin. He was given blood which he tolerated without any complications. He was to have physical therapy evaluation with [facility] and be transferred to [facility] for continuation of physical therapy. However, it was noted that on his medial malleolus overlying the skin, was showing evidence of breakdown and there were concerns he was going to develop a wound that would require aggressive management that is not available at [place]. [facility] once again did a consultation and agreed to take the patient in transfer for continued management of his wound care and plan physical therapy. PLAN: The patient was discharged on 06/26/17. He was transferred by private vehicle to [facility]. He was to have wound care per his facility management. He is to have no weight bearing on the left lower extremity and [facility] care as provided. No new prescriptions were started at discharge. He was to have followup with Dr. Avery as scheduled as well as Dr. Kay. The patient is discharged in stable condition. #[id number] [facility]
== END 2017-06-26 15:05 | DRG 493 ==
LOC: ER 02:34 → MS 07:10 → OBSVTOIN 06-21 16:24 → MS 06-23 11:28
PROVIDERS: ADMIT Nurse Practitioner Family; ATTEND Nurse Practitioner Family
PROC: 0QSK04Z Reposition Left Fibula with Internal Fixation Device, Open Approach (ICD-10-PCS; principal; 2017-06-21)
PROC: 0QSHXZZ Reposition Left Tibia, External Approach (ICD-10-PCS; 2017-06-21)
PROC: 30233N1 Transfusion of Nonautologous Red Blood Cells into Peripheral Vein, Percutaneous Approach (ICD-10-PCS; 2017-06-21)
DX: S82.852A Displaced trimalleolar fracture of left lower leg, initial encounter for closed fracture (principal); E87.1 Hypo-osmolality and hyponatremia; W01.0XXA Fall on same level from slipping, tripping and stumbling without subsequent striking against object, initial encounter; I10 Essential (primary) hypertension; K21.9 Gastro-esophageal reflux disease without esophagitis; G30.9 Alzheimer's disease, unspecified; F02.80 Dementia in other diseases classified elsewhere, unspecified severity, without behavioral disturbance, psychotic disturbance, mood disturbance, and anxiety; D50.9 Iron deficiency anemia, unspecified; R60.9 Edema, unspecified; I25.10 Atherosclerotic heart disease of native coronary artery without angina pectoris; G62.9 Polyneuropathy, unspecified; H91.90 Unspecified hearing loss, unspecified ear; N52.9 Male erectile dysfunction, unspecified; Y93.89 Activity, other specified; Y92.009 Unspecified place in unspecified non-institutional (private) residence as the place of occurrence of the external cause; Y99.9 Unspecified external cause status; Z85.038 Personal history of other malignant neoplasm of large intestine; Z90.49 Acquired absence of other specified parts of digestive tract; Z88.1 Allergy status to other antibiotic agents; Z88.0 Allergy status to penicillin; Z79.899 Other long term (current) drug therapy; Z92.21 Personal history of antineoplastic chemotherapy; Z22.322 Carrier or suspected carrier of Methicillin resistant Staphylococcus aureus; Z87.891 Personal history of nicotine dependence; L98.8 Other specified disorders of the skin and subcutaneous tissue

== ENCOUNTER → 2017-07-07 | Outpatient (CLI) | payer MEDICARE | LOC: GRHH 15:48 | PROVIDERS: ATTEND Surgery | DX: L89.520 Pressure ulcer of left ankle, unstageable (principal) ==

== ENCOUNTER → 2017-07-15 | Outpatient (CLI) | payer MEDICARE | LOC: GMAJ 10:26 | PROVIDERS: ATTEND Family Medicine | DX: E87.1 Hypo-osmolality and hyponatremia (principal); D64.9 Anemia, unspecified ==

== ENCOUNTER → 2017-07-16 | Outpatient (CLI) | payer MEDICARE | LOC: GMAJ 13:25 | PROVIDERS: ATTEND Family Medicine | DX: D50.8 Other iron deficiency anemias (principal) ==

== ENCOUNTER → 2017-07-17 | Outpatient (CLI) | payer MEDICARE ==
--- NOTE | 2017-07-18 12:24 | RAD ---
EXAM DESCRIPTION: Ankle,Left 3 Views CLINICAL HISTORY: 86 years Male, LEFT ANKLE PAIN COMPARISON: June 23, 2017 FINDINGS: 3 views of the left ankle show postoperative changes with a plate and screw fixation device over the distal left fibula laterally. No hardware complication. There is a slightly displaced medial malleolar fracture with minimal widening of the tibiotalar joint space medially, not significantly changed from May 2016, 2017. The posterior malleolus is intact. No acute lateral malleolar fracture is identified. The talar dome is well-maintained. The posterior facet of the subtalar joint is poorly visualized, but no talar or calcaneal fracture is identified. This is likely related to patient positioning. Vascular calcifications are noted. IMPRESSION: Uncomplicated postoperative changes in the left ankle and an old minimally displaced, nonunited medial malleolar fracture. Findings are stable from May 2017. No new fracture. Minimal lateral subluxation of the tibiotalar joint, also stable from May,. No new abnormality. Electronically signed by: Olvin Du MD 07/18/2017 12:21 PM CDT
== END ==
LOC: RAD 08:00
PROVIDERS: ATTEND Orthopaedic Surgery
DX: M25.572 Pain in left ankle and joints of left foot (principal); Z98.890 Other specified postprocedural states

== ENCOUNTER → 2017-07-22 | Outpatient (CLI) | payer MEDICARE | LOC: LAB.O 12:47 | PROVIDERS: ATTEND Orthopaedic Surgery | DX: S81.802D Unspecified open wound, left lower leg, subsequent encounter (principal) ==

== ENCOUNTER → 2017-08-05 | Outpatient (CLI) | payer MEDICARE | LOC: GT 11:03 | PROVIDERS: ATTEND Surgery | DX: L89.520 Pressure ulcer of left ankle, unstageable (principal) ==

== ENCOUNTER → 2017-08-14 | Outpatient (CLI) | payer MEDICARE | LOC: GRHH 10:04 | PROVIDERS: ATTEND Surgery | DX: D50.9 Iron deficiency anemia, unspecified (principal); E87.1 Hypo-osmolality and hyponatremia; L89.520 Pressure ulcer of left ankle, unstageable ==

== ENCOUNTER → 2017-08-17 | Outpatient (CLI) | payer MEDICARE | LOC: GRHH 15:33 | PROVIDERS: ATTEND Family Medicine | DX: E87.1 Hypo-osmolality and hyponatremia (principal) ==

== ENCOUNTER → 2017-08-26 | Outpatient (CLI) | payer MEDICARE | LOC: GRHH 09:56 | PROVIDERS: ATTEND Family Medicine | DX: E87.1 Hypo-osmolality and hyponatremia (principal) ==

== ENCOUNTER → 2017-08-27 | Outpatient (CLI) | payer MEDICARE ==
--- NOTE | 2017-08-27 17:14 | RAD ---
EXAM DESCRIPTION: Ankle,Left 3 Views CLINICAL HISTORY: 86 years, Male, CLOSED TRIMALLEOLAR FRACTURE OF LEFT ANKLE COMPARISON: None. TECHNIQUE: AP/lateral/oblique of the left ankle FINDINGS: Fractured medial malleolus is seen which appears slightly more obvious than on previous study. This could be due to resorption along the fracture line or reinjury. Clinical correlation recommended. Plate and screws are seen in the distal fibula. No talar dome fracture. Lateral view shows intact talus and calcaneus. Dorsal mid foot spurring is seen with prominent dorsal calcaneal enthesophyte. Extensive vascular calcification is noted. IMPRESSION: Orthopedic hardware stabilizing lateral malleolar fracture. Medial malleolar fracture. Electronically signed by: Damion Hope MD 08/27/2017 5:12 PM CDT
== END ==
LOC: RAD 09:24
PROVIDERS: ATTEND Orthopaedic Surgery
DX: S82.852D Displaced trimalleolar fracture of left lower leg, subsequent encounter for closed fracture with routine healing (principal)

== ENCOUNTER → 2017-08-31 | Outpatient (CLI) | payer MEDICARE | LOC: LAB 16:09 | PROVIDERS: ATTEND Surgery | DX: T81.4XXA Infection following a procedure, initial encounter (principal) ==

== ENCOUNTER 2017-09-03 06:14 | Day surgery (SDC) | payer MEDICARE ==
--- NOTE | 2017-09-02 04:46 | RAD ---
Procedure: XR CHEST 2 VIEWS Exam Date: 09/01/2017 Ordering Provider: DARIN CABRERA Clinical Indication: PRE SURGERY Comparison: 08/17/2017 Findings: Right chest torrie catheter stable in position. Cardiomediastinal silhouette: Unremarkable Pulmonary vasculature : Unremarkable Aortic calcification. Focal lung consolidation: None Pleural effusion: None Pneumothorax: None Bones and soft tissues: Nonacute Impression: 1. No acute abnormalities in the chest. Electronically signed by: Igor Stone MD 09/02/2017 4:45 AM CDT
[2017-09-03] MEDS ORDERED: PROPOFOL 200 MG/20 ML VIAL IV ONE (07:00)
[2017-09-03] MEDS ORDERED: ceFAZolin SODIUM 1 GM VIAL ONE (07:08)
[2017-09-03] MEDS ORDERED: LACTATED RINGERS 1,000 ML ONE (07:08)
[2017-09-03] MEDS ORDERED: SODIUM CHL 0.9% 100ML MINI-BAG 100 ML IVPB ONE (07:08)
[2017-09-03] MEDS ORDERED: LIDOCAINE 1% 50 ML VIAL INJ ONE (08:14)
--- NOTE | 2017-09-03 10:13 | OP ---
DATE OF PROCEDURE: 09/03/17 PREOPERATIVE DIAGNOSIS: 1. Wound, medial left ankle status post open fracture, left ankle. POSTOPERATIVE DIAGNOSIS: 1. Wound, medial left ankle status post open fracture, left ankle. PROCEDURE: 1. Split thickness skin graft from left upper chest to left medial ankle wound. SURGEON: True Bermudez MD. [employer]URING SUPERVISOR: None. ANESTHESIA: Local infiltration of 1% lidocaine with bicarb and IV sedation by Anesthesia. INDICATION: The patient is an 86-year-old male who fractured his left ankle several months ago. He underwent open repair through the medial aspect with hardware. He developed an open wound which has been treated with a wound VAC and now has good granulating bed. He has been on Bactrim for drainage from the surgical site. He is now stable. He was brought to the Surgical Suite today for split thickness skin graft. FINDINGS: The wound was 3.5 by 2.5 cm generally elliptically shaped. The pinch graft from the left upper chest was approximately 5.5 by 2.5 cm in diameter. PROCEDURE: After the patient was brought to the Surgical Suite, mild sedation was obtained and his left upper chest and left ankle were prepped and draped in the usual sterile manner. ChloraPrep was used on the chest and Betadine Gel was used for the leg. At this point, an elliptical incision was fashioned on the chest, first with a marking pen and the ruler, then infiltration of anesthesia was obtained. Using a 10 blade, a split thickness skin graft was taken by hand. It was then placed on a moist sponge. Hemostasis was obtained with electrocautery. The wound was closed with interrupted 3-0 Nylon vertical mattress sutures. It was then covered with a sterile towel. At this point, the skin graft was checked. There was no fat in it. It was then pie-crusted with a 15 blade. When this was done, it was sutured in place with interrupted 4 -0 Vicryl simple sutures circumferentially. There was trimming performed on one end as it was too long. When it was sutured in place, the wound VAC was reapplied. The patient tolerated the procedure well. Estimated blood loss was less than 25 mL. All sponge, needle and instrument counts were correct. #[id number] [facility]
[2017-09-03 10:35] VITALS: BP 164/75; TEMP 97.3; O2SAT 100
[2017-09-03] MEDS ORDERED: HEPARIN SODIUM 100 U/ML 5 ML SYG IV ONE (10:52)
== END 2017-09-03 11:05 | disposition home or self-care (01) ==
LOC: AMB 06:14
PROVIDERS: ATTEND Surgery
DX: T81.89XA Other complications of procedures, not elsewhere classified, initial encounter (principal); S91.002S Unspecified open wound, left ankle, sequela; I10 Essential (primary) hypertension; I25.10 Atherosclerotic heart disease of native coronary artery without angina pectoris; K21.9 Gastro-esophageal reflux disease without esophagitis; G30.9 Alzheimer's disease, unspecified; F02.80 Dementia in other diseases classified elsewhere, unspecified severity, without behavioral disturbance, psychotic disturbance, mood disturbance, and anxiety; F32.9 Major depressive disorder, single episode, unspecified; D64.9 Anemia, unspecified; E87.1 Hypo-osmolality and hyponatremia; N40.0 Benign prostatic hyperplasia without lower urinary tract symptoms; R60.9 Edema, unspecified; Z85.038 Personal history of other malignant neoplasm of large intestine; Z87.891 Personal history of nicotine dependence; Z86.14 Personal history of Methicillin resistant Staphylococcus aureus infection; Z88.1 Allergy status to other antibiotic agents; Z88.5 Allergy status to narcotic agent; Z88.0 Allergy status to penicillin; Z88.8 Allergy status to other drugs, medicaments and biological substances; Z79.899 Other long term (current) drug therapy
CPT/HCPCS: 00400; 15120; 36415; 71046; 80048; 81001; 85025; 93005; J0690; J1642; J3490; J7050; J7120

== ENCOUNTER → 2017-09-22 | Outpatient (CLI) | payer MEDICARE | LOC: GRHH 09:45 | PROVIDERS: ATTEND Family Medicine | DX: E03.9 Hypothyroidism, unspecified (principal); E87.1 Hypo-osmolality and hyponatremia; I10 Essential (primary) hypertension ==

== ENCOUNTER → 2017-09-23 | Outpatient (CLI) | payer MEDICARE ==
--- NOTE | 2017-09-23 15:42 | RAD ---
EXAM DESCRIPTION: Ankle,Left 3 Views CLINICAL HISTORY: 86 years Male, CLOSED TRIMALLEOLAR FX OF LEFT ANKLE COMPARISON: Radiographs dated 08/27/2017. TECHNIQUE: AP, oblique and lateral radiographs. FINDINGS: The visualized bones appear well mineralized. Again identified is plate and screw fixation of the distal fibula. Transverse fracture of the medial malleolus is visualized. The ankle mortise is intact. Mild diffuse soft tissue swelling is noted. IMPRESSION: Stable ankle radiographs compared to 08/27/2017. Electronically signed by: Marivel Guaman MD 09/23/2017 3:41 PM CDT
== END ==
LOC: RAD 08:14
PROVIDERS: ATTEND Orthopaedic Surgery
DX: S82.852D Displaced trimalleolar fracture of left lower leg, subsequent encounter for closed fracture with routine healing (principal)

== ENCOUNTER → 2017-10-07 | Outpatient (CLI) | payer MEDICARE ==
--- NOTE | 2017-10-07 16:05 | US ---
Venous Doppler sonogram right upper extremity INDICATION: Arm pain right concern for DVT TECHNIQUE: Grayscale color flow and spectral Doppler sonogram right arm FINDINGS: No evidence of DVT in the right arm. All visualized vessels are patent and compressible where accessible. Normal respiratory variation. Portions of the right internal jugular vein, right subclavian vein, axillary brachial, basilic, radial and ulnar veins are visible. IMPRESSION: Negative venous Doppler sonogram right arm and visualized right shoulder region Electronically signed by: Alfonso Marti MD 10/07/2017 4:04 PM CDT
== END ==
LOC: US 15:13
PROVIDERS: ATTEND Nurse Practitioner Family
DX: M79.601 Pain in right arm (principal)

== ENCOUNTER → 2017-10-19 | Outpatient (CLI) | payer MEDICARE | LOC: GRHH 10:53 | PROVIDERS: ATTEND Family Medicine | DX: I10 Essential (primary) hypertension (principal); D50.9 Iron deficiency anemia, unspecified; E87.1 Hypo-osmolality and hyponatremia; Z79.2 Long term (current) use of antibiotics ==

== ENCOUNTER → 2017-12-24 | Outpatient (CLI) | payer MEDICARE ==
--- NOTE | 2017-12-24 11:00 | RAD ---
EXAM DESCRIPTION: Ankle,Left 3 Views CLINICAL HISTORY: 87 years Male, TRIMALLEOLAR FX COMPARISON: Radiographs dated 09/23/2017. TECHNIQUE: AP, oblique and lateral radiographs. FINDINGS: The visualized bones appear poorly mineralized. There is some interval healing of the medial malleolar and distal fibular fractures. Intact plate and screw fixation of the distal fibula is noted. The ankle mortise is intact. The soft tissues appear grossly unremarkable. IMPRESSION: There is some interval healing of the medial malleolar and distal fibular fractures. Intact plate and screw fixation of the distal fibula is noted. Electronically signed by: Marivel Guaman MD 12/24/2017 10:59 AM CDT
== END ==
LOC: RAD 09:12
PROVIDERS: ATTEND Orthopaedic Surgery
DX: S82.852D Displaced trimalleolar fracture of left lower leg, subsequent encounter for closed fracture with routine healing (principal)

== ENCOUNTER → 2019-08-30 | Outpatient (CLI) | payer MEDICARE | LOC: NC 08:27 | PROVIDERS: ATTEND Family Medicine | DX: I10 Essential (primary) hypertension (principal); G30.9 Alzheimer's disease, unspecified; E78.5 Hyperlipidemia, unspecified ==